=== PATIENT | female | born 1985 | race Caucasian/White ===

== ENCOUNTER 2017-08-16 22:59 | Emergency (ER) | payer SELFPAY ==
[2017-08-16 23:24] VITALS: TEMP 98.6
--- NOTE | 2017-08-16 23:42 | ED.PDOC ---
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 INITIALLY MILD BUT HAS GOTTEN HEAVIER. PASSED SOME CLOTS WHILE HERE. NO TISSUE, LESS THAN PERIOD. RECENT DX OF . [id number] 5 0/7 WBD. - History of Present Illness Timing/Duration: this morning Quality: mild Allergies/Adverse Reactions: Allergies Chlorpheniramine [From Chlor-Trimeton Decongestant] Allergy (Verified 08/16/17 23:24) Naproxen Allergy (Verified 08/16/17 23:24) Pseudoephedrine [From Chlor-Trimeton Decongestant] Allergy (Verified 08/16/17 23 :24) Ranitidine [From Zantac] Allergy (Verified 08/16/17 23:24) Home Medications: Ambulatory Orders Advil Migraine PRN 08/16/17 Review of Systems - Review of Systems Constitutional: Denies: chills, fever EENTM: States: no symptoms reported Respiratory: States: no symptoms reported Cardiology: States: no symptoms reported Gastrointestinal/Abdominal: Denies: abdominal pain - C/O ABDOMINAL PRESSURE. , nausea, vomiting Genitourinary: States: other - VAGINAL BLEEDING. Denies: dysuria, frequency Musculoskeletal: Denies: back pain Skin: States: no symptoms reported Neurological: States: no symptoms reported Endocrine: States: no symptoms reported Hematologic/Lymphatic: States: no symptoms reported Past Medical History (General) - Patient Medical History Hx Seizures: No Hx Stroke: No Hx Dementia: No Hx Asthma: No Hx of COPD: No Hx Cardiac Disorders: No Hx Congestive Heart Failure: No Hx Pacemaker: No Hx Hypertension: No Hx Thyroid Disease: No Hx Diabetes: No Hx Gastroesophageal Reflux: No Hx Renal Disease: No Hx Cancer: No Hx of HIV: No Hx Hepatitis C: No Hx MRSA: No Surgical History: no surgical history - Vaccination History Hx Tetanus, Diphtheria Vaccination: No Hx Influenza Vaccination: No - Social History Hx Tobacco Use: No Hx Alcohol Use: No Hx Substance Use: No Hx Substance Use Treatment: No Hx Depression: No - Female History Hx Last Menstrual Period: 07/12/17 Patient : Yes Family Medical History - Family History Mother Family History: No Known Physical Exam - Physical Exam General Appearance: Alert, No apparent distress Eyes, Ears, Nose, Throat Exam: PERRL/EOMI, normal ENT inspection Neck: non-tender, full range of motion, supple Cardiovascular/Respiratory: regular rate, rhythm, no M/R/G Gastrointestinal/Abdominal: normal bowel sounds, soft, no organomegaly, other - MILD TTP SUPRAPUBIC, NO G/R Pelvic Exam: external exam normal, no cerv. motion tender, no masses, other - SMALL AMOUNT OF DARK BLOOD IN VAULT. NO ACTIVE BLEEDING, CX CL, UTX SMALL RETROVERTED. NO ADNEXAL MASSES/TENDERNESS Back Exam: normal inspection, no CVA tenderness Extremity: normal range of motion, non-tender, no pedal edema, no calf tenderness Neurologic: alert, normal mood/affect Skin Exam: normal color, warm/dry Lymphatic: no adenopathy Departure - Departure Clinical Impression: Spontaneous Time of Disposition: 00:56 Disposition: Discharge to Home or Self Care Condition: Good Departure Forms: ED Discharge - Pt. Copy, Patient Portal Self Enrollment Instructions: DI for Miscarriage Home Medications: Ambulatory Orders Advil Migraine PRN 08/16/17
[2017-08-17 01:05] VITALS: BP 119/77; O2SAT 99
== END 2017-08-17 01:06 | disposition home or self-care (01) ==
LOC: ER 22:59
DX: O03.9 Complete or unspecified spontaneous abortion without complication (principal)